=== PATIENT | male | born 1940 | race Caucasian/White ===

== ENCOUNTER 2017-10-27 14:15 | Emergency (ER) | payer MEDICARE ==
[2016-09-10 07:00] VITALS: BMI 26.4
[~2017-10-27 14:15] MED LIST: BAYER CHEWABLE81 MG PO; COZAAR50 MG; FLOMAX0.4 MG; FLOMAX0.4 MG PO; LEVAQUIN750 MG PO; LISINOPRIL10 MG NG; LISINOPRIL10 MG OR; NORCO 10/325 TA1 TA1 PO; PHENERGAN25 M1 PO; PLAVIX75 MG PO; PRAVACHOL20 MG PO; PRILOSEC20 MG OR; PRILOSEC20 MG PO; ZITHROMAX250 MG PO
[2017-10-27 15:03] LABS: BASOPHILS 0.2 % (0-2); HEMATOCRIT 46.6 % (42.0-54.0); HEMOGLOBIN 16.1 g/dL (13.5-17.5); IMMATURE GRANULOCYTES 0.2 % (0-5); LYMPHOCYTES 25.7 % (15-50); MCH 32.3 pg (26.0-34.0); MCHC 34.5 g/dL (31.0-37.0); MCV 93.6 fL (80.0-100.0); MEAN PLATELET VOLUME 10.4 fL (7.4-10.4); MONOCYTES 10.7 % (2-11); NEUTROPHILS 59.2 % (40-80); PLATELET COUNT 130 10x3/uL (130-400); RBC 4.98 10x6/uL (4.20-6.10); RDW 12.5 % (11.5-14.5)
[2017-10-27 15:20] LABS: ALBUMIN 4.1 g/dL (3.4-5.0); ALKALINE PHOSPHATASE 67 U/L (46-116); ALT (SGPT) 43 U/L (10-68); BILIRUBIN - TOTAL 0.99 mg/dL (0.2-1.3); CALC OSMOLALITY 283 mosm/kg (275-300); CALCIUM 9.4 mg/dL (8.5-10.1); CARBON DIOXIDE 29.9 mmol/L (21.0-32.0); CHLORIDE - SERUM 103 mmol/L (98-107); GLUCOSE 116 mg/dL (74-106); POTASSIUM - SERUM 4.6 mmol/L (3.5-5.1); SODIUM 141 mmol/L (136-145); UREA NITROGEN 18 mg/dL (7-18); eGFR NON AFRICAN AMERICAN 77 mL/min (90-120)
[2017-10-27 15:36] LABS: CHOL - HDL RATIO 3.6 ratio (2.3-4.9); CHOLESTEROL, TOTAL 181 mg/dL (0-200); CKMB 1.8 U/L (0.0-3.6); CREATINE KINASE 122 UL (21-232); HDL CHOLESTEROL 51 mg/dL (32-96); LDL CHOLESTEROL 101 mg/dL (0-100); TRIGLYCERIDE 148 mg/dL (30-200)
[2017-10-27 15:37] LABS: TROPONIN-I < 0.017 ng/mL (0.000-0.060)
== END 2017-10-27 19:17 | disposition home or self-care (01) ==
LOC: D.ER 14:15
PROVIDERS: Emergency Medicine
DX: R07.9 Chest pain, unspecified (principal); I45.10 Unspecified right bundle-branch block; Z95.0 Presence of cardiac pacemaker

== ENCOUNTER 2017-11-18 08:02 | Outpatient (CLI) | payer MEDICARE ==
[~2017-11-18] VITALS: Ht 185.4 cm; Wt 90.9 kg
--- NOTE | ~2017-11-18 | HEMODYNAMI ---
PATIENT:KATHI HUITRON MEDICAL RECORD: [id number] : 44 LOCATION:[facility] ADMISSION DATE: 11/18/17 Generatedon:11/18/201710:56 Patient name: KATHI HUITRON Patient #: [id number] SSN: D OB: 1940 Date of study: 11/18/2017 Page: Of Hemodynamic Procedure Report Patient Data Patient Demographics Procedure consent was obtained First Name: KATHI Gender: Male Last Name: ELANA : 1940 [facility] Initial: C Age: 77 year(s) Patient #: [id number] Race: Unknown Additional ID: [id number] Contact details [address]: [address] [place] [address] State: [place] City: [place] Zip code: [address] Admission Admission Data Admission Date: 11/18/2017 Admission Time: 8:02 Procedure Procedure Types Cath Procedure Diagnostic Procedure LHC LH w/Coronaries PCI Procedure Coronary Stent Coronary Stent Initial x2 Miscellaneous Procedures Moderate Sedation up to 15 minutes Procedure Description Procedure Date Procedure Date: 11/18/2017 Procedure Start Time: 10:35 Procedure End Time: 10:54 Procedure Staff Name Function Horacio Herrera MD Performing Physician Chandrakant Cagle RT Monitor Alice Frost RT Scrub Jan Euceda RN Nurse Procedure Data Cath Procedure Fluoroscopy Diagnostic fluoroscopy Total fluoroscopy Time: 4.7 time: 4.7 min min Diagnostic fluoroscopy Total fluoroscopy dose: 654 dose: 654 mGy mGy Contrast Material Contrast Material Type Amount (ml) Isovue 300 86 Entry Location Entry Primary Successful Side Size Upsize Upsize Entry Closure Lanza ccessful Closure Location (Fr) 1 (Fr) 2 (Fr) Remarks Device Remarks Radial Right 6 Fr Mechanical artery Short Compression Estimated blood loss: 10 ml Diagnostic catheters Device Type Used For End Catheter Placement DIAGNOSTIC Louin 110cm 5 Procedure Fr catheter ([id number]) Procedure Complications No complications Procedure Medications Medication Administration Route Dosage 0.9% NaCl I.V. 100 ml/hr Oxygen NC 2 l/min Heparin Flush Bag added to field 2 bags (1000units/500ml NS) Lidocaine 2% added to field 20 Radial Cocktail added to field 1 syringe (Verapomil 2mg/Nitro 400mcg/Heparin 1500units) Versed I.V. 1 mg Fentanyl I.V. 50 mcg Radial Cocktail I.A. 1 syringe (Verapomil 2mg/Nitro 400mcg/Heparin 1500units) Versed I.V. 0.5 mg Fentanyl I.V. 25 mcg Heparin Bolus I.V. 4000 units Hemodynamics Rest Heart Rate: 61 (bpm) Snapshots Pre Cath Intra NCS Post Cath Vital Signs Time Heart Resp SPO2 etCO2 NIBP (mmHg) Rhythm Pain Sedation Rate (ipm) (%) (mmHg) Status Level (bpm) 10:16:37 60 26 100 0 157/83(126) NSR 0 (11) 10(A) , No pain 10:21:20 60 20 97 0 130/73(91) NSR 0 (11) 10(A) , No pain 10:25:59 60 19 98 37.1 132/74(92) NSR 0 (11) 10(A) , No pain 10:30:40 61 19 98 40.1 128/66(97) NSR 0 (11) 10(A) , No pain 10:35:18 56 22 99 34.8 134/73(106) NSR 0 (11) 10(A) , No pain 10:39:52 75 21 96 29.5 113/69(100) NSR 0 (11) 9(A) , No pain 10:44:29 70 19 96 39.3 127/69(86) NSR 0 (11) 9(A) , No pain 10:49:08 71 23 96 29.5 129/68(97) NSR 0 (11) 9(A) , No pain 10:53:48 32.5 125/69(92) NSR 0 (11) 9(A) , No pain Medications Time Medication Route Dose Verified Delivered Reason Note s Effectiveness by by 10:15:59 0.9% NaCl I.V. 100 Jan Jan Per physician ml/hr Kinsey Euceda RN RN 10:16:10 Oxygen NC 2 l/min Jan Jan Per physician Kinsey Euceda RN RN 10:16:24 Heparin Flush added 2 bags Jan Jan used for Bag to Kinsey Euceda procedure (1000units/500ml field RN RN NS) 10:16:38 Lidocaine 2% added 20ml Jan Jan for local to vial Lorigan Kinsey anesthetic field RN RN 10:17:02 Radial Cocktail added 1 Jan Jan used for (Verapomil to syringe Lorigan Kinsey procedure 2mg/Nitro field RN RN 400mcg/Heparin 1500units) 10:30:56 Versed I.V. 1 mg Jan Jan for sedation Kinsey Euceda RN RN 10:31:08 Fentanyl I.V. 50 mcg Jan Jan for sedation Kinsey Euceda RN RN 10:35:40 Radial Cocktail I.A. 1 Jan Horacio for (Verapomil syringe Lorigan Taumiles MD vasodilation 2mg/Nitro RN 400mcg/Heparin 1500units) 10:35:51 Versed I.V. 0.5 mg Jan Jan for sedation Kinsey Euceda RN RN 10:35:59 Fentanyl I.V. 25 mcg Jan Jan for sedation Kinsey Euceda RN RN 10:40:12 Heparin Bolus I.V. 4000 Jan Jan for units Lorthad Euceda anticoagulation RN analyst market intelligence Log Time Note 9:50:01 Chandrakant Cagle RT(R) sent for patient. Start room use. 9:56:12 Time tracking: Regular hours 9:56:16 Plan of Care:Hemodynamics will remain stable., Cardiac rhythm will remain stable., Comfort level will be maintained., Respiratory function will remain adequate., Patient/ family verbilizes understanding of procedure., Procedure tolerated without complication., Recovers from procedure without complications.. 10:07:22 Patient received from Pre/Post Procedure Room to CCL 1 Alert and oriented. Tansferred to table in Supine position. 10:07:24 Warm blankets applied, and armaan hugger turned on for patient comfort. 10:07:24 Correct patient and procedure confirmed by team. 10:07:26 Signed procedure consent form obtained from patient. 10:07:26 ECG and BP/O2 sat monitors applied to patient. 10:07:27 Full Disclosure recording started 10:15:40 Vital chart was started 10:15:42 Baseline sample Acquired. 10:15:48 Rhythm: sinus rhythm 10:15:57 H&P Date Dictated: 10/31/2017 Within 30 days and on chart., H&P Addendum completed by physician on day of procedure. (MUST COMPLETE FOR ALL OUTPATIENTS). 10:15:58 Pre-procedure instructions explained to patient. 10:15:59 0.9% NaCl 100 ml/hr I.V. was administered by Jan Euceda RN; Per physician; 10:15:59 Pre-op teaching completed and patient verbalized understanding. 10:16:07 Family in patients room. 10:16:09 Patient NPO since Midnight. 10:16:10 Oxygen 2 l/min NC was administered by Jan Euceda RN; Per physician; 10:16:10 Is the patient allergic to Iodine/contrast media? No. 10:16:14 Is patient on blood thinner?Yes 10:16:18 ACC The patient was administered the following blood thiners within the last 24 hours: ACCPlavix 10:16:20 Patient diabetic? No. 10:16:22 Previous problem with sedation/anesthesia? No ? 10:16:23 Snore? Yes 10:16:24 Heparin Flush Bag (1000units/500ml NS) 2 bags added to field was administered by Jan Euceda RN; used for procedure; 10:16:25 Sleep apnea? No 10:16:26 Deviated septum? No 10:16:27 Opens mouth fully? Yes 10:16:27 Sticks out tongue? Yes 10:16:33 Airway obstruction? Yes Asthma, COPD 10:16:38 Lidocaine 2% 20ml vial added to field was administered by Jan Euceda RN; for local anesthetic; 10:16:48 Dentures? No ? 10:16:50 Pre procedure: right dorsailis pedis pulse 1+ Palpable, but thready & weak; easily obliterated 10:16:53 Modified Tristan's test Ulnar < 7 seconds 10:16:55 Patient pain scale 0/10 ?. 10:17:02 Radial Cocktail (Verapomil 2mg/Nitro 400mcg/Heparin 1500units) 1 syringe added to field was administered by Jan Eucdea RN; used for procedure; 10:17:07 IV patent on arrival in right antecubital with 0.9% NaCl at [facility]. 10:17:17 Lab results completed and on chart. 10:17:19 Right Radial & Right Groin area was prepped with chlora-prep and draped in sterile fashion 10:17:20 Alarms reviewed by R. N. 10:17:21 Sharps counted by scrub and verified by R.N. 10:17:25 Use device set Radial Dx or PCI 10:17:27 Tegaderm 4 x 4 (1626W) opened to sterile field. 10:17:28 ACIST Manifold (54403) opened to sterile field. 10:17:28 ACIST Hand Control (48001) opened to sterile field. 10:17:31 ACIST Syringe (60323) opened to sterile field. 10:17:31 Medline Cath Pack ([id number]) opened to sterile field. 10:17:31 Bag Decanter (2002S) opened to sterile field. 10:17:32 SHEATH 6FR Slender ([id number]) opened to sterile field. 10:17:32 DIAGNOSTIC WIRE .035 260cm J wire (323369) opened to sterile field. 10:17:33 MBrace Wrist Support ([id number]) opened to sterile field. 10:29:11 Zero performed for pressure channel P1 10:29:14 Zero performed for pressure channel P1 10:30:27 --------ALL STOP TIME OUT------ 10:30:27 Final Timeout: patient, procedure, and site verified with staff and physician. All members of the team are in agreement. 10:30:29 Right Radial & Right Groin site verified by team. 10:30:32 Physical assessment completed. ASA score P 2 - A patient with mild systemic disease as per Horacio Herrera MD. 10:30:35 Sedation plan: IV Moderate Sedation Medication:Versed, Fentanyl 10:30:56 Versed 1 mg I.V. was administered by Jan Euceda RN; for sedation; 10:31:08 Fentanyl 50 mcg I.V. was administered by Jan Euceda RN; for sedation; 10:35:03 Procedure started. 10:35:08 Local anesthetic to right radial artery with Lidocaine 2% by Horacio Herrera MD.INITIAL ACCESS ONLY 10:35:29 A 6 Fr Short sheath was inserted into the Right Radial artery 10:35:40 Radial Cocktail (Verapomil 2mg/Nitro 400mcg/Heparin 1500units) 1 syringe I.A. was administered by Horacio Herrera MD; for vasodilation; 10:35:40 A DIAGNOSTIC Louin 110cm 5 Fr catheter (001002) was advanced over the wire and used for Procedure. 10:35:51 Versed 0.5 mg I.V. was administered by Jan Euceda RN; for sedation; 10:35:59 Fentanyl 25 mcg I.V. was administered by Jan Euceda RN; for sedation; 10:36:34 LV angiography performed. 10:36:40 LV gram done using VILLALOBOS 10:37:10 EF : 60 % 10:37:22 Injector settings: Ml/sec: 7, Volume: 15, 10:37:34 LCA angiography performed. 10:37:50 Use device set [facility] PCI 10:38:07 RCA angiography performed. 10:38:09 CHOICE PT Extra Support J 300cm guide wire ([id number]) opened to sterile field. 10:38:10 GUIDE 6FR XBLAD 3.5 catheter ([id number]) opened to sterile field. 10:38:13 INFLATOR Merit BasixCompak (CW8544) opened to sterile field. 10:38:17 Catheter exchanged over wire. 10:40:12 Heparin Bolus 4000 units I.V. was administered by Jan Euceda RN; for anticoagulation; 10:41:57 6 Fr XBLAD 3.5 guide catheter was inserted over the wire 10:42:15 Choice PT XS wire advanced. 10:42:17 Wire advanced across lesion. 10:42:28 Inflation Number: 1 A CLARICE OTW 3.5 x 15 stent ([id number]) was prepped and advanced across the Mid CX. The stent was deployed at 13 ANALY for 0:10 (min:sec). 10:43:29 Stent catheter was removed intact over wire. 10:45:12 Inflation Number: 2 A CLARICE OTW 3.0 x 12 stent ([id number]) was prepped and advanced across the Mid CX. The stent was deployed at 19 ANALY for 0:10 (min:sec). 10:45:38 Stent catheter was removed intact over wire. 10:47:01 Wire redirected to LAD. 10:47:26 Inflation Number: 1 A CLARICE OTW 3.0 x 12 stent ([id number]) was prepped and advanced across the Mid LAD. The stent was deployed at 19 ANALY for 0:10 (min:sec). 10:48:03 TR BAND Standard ([id number]) opened to sterile field. 10:48:08 Stent catheter was removed intact over wire. 10:48:09 Wire removed. 10:48:09 Guide catheter removed. 10:48:23 Sheath removed intact; hemostasis achieved with Mechanical Compression to the Right Radial artery. 10:48:26 Procedure ended.(Physican Out) 10:49:54 TR band inflated with 10cc of air. 10:49:58 Fluoroscopy time 04.70 minutes. 10:50:02 Fluoroscopy dose: 654 mGy 10:50:02 Flurop Dose total: 654 10:50:08 Contrast amount:Isovue 300 86ml. 10:50:10 Sharps counted by scrub and verified by R.N. 10:53:51 Insertion/operative site no bleeding no hematoma. 10:53:57 Post Procedure Pulses reassessed and unchanged 10:54:00 Post-procedure physical assessment completed. ASA score P 2 - A patient with mild systemic disease as per Horacio Herrera MD. 10:54:02 Post procedure rhythm: unchanged. 10:54:04 Estimated blood loss: 10 ml 10:54:06 Post procedure instruction explained to patient.Patient verbalizes understanding. 10:54:07 Patient needs reinforcement of post procedure teaching. 10:54:19 Procedure type changed to Cath procedure, Diagnostic procedure, LHC, LHC w/Coronaries, PCI procedure, Coronary Stent, Coronary Stent Initial x2, Miscellaneous Procedures, Moderate Sedation up to 15 minutes 10:54:20 Procedure and supply charges have been captured, reviewed, submitted and are correct. 10:54:23 Procedure Complication : No complications 10:54:45 Vital chart was stopped 10:54:46 See physician's report for complete and final results. 10:54:47 Report given to Pre/Post Procedure Room. 10:54:51 Patient transfered to Pre/Post Procedure Room with Stretcher. 10:54:53 Procedure ended. 10:54:53 Full Disclosure recording stopped 10:55:05 End room use (Document Last) Intervention Summary Intervention Notes Time ActionType Lesion and Equipment Action# Pressure Duration Attributes Used 10:42:28 Place stent Mid CX CLARICE OTW 3.5 1 13 00:10 x 15 stent ([id number]) 10:45:12 Place stent Mid CX CLARICE OTW 3.0 2 19 00:10 x 12 stent ([id number]) 10:47:26 Place stent Mid LAD CLARICE OTW 3.0 1 19 00:10 x 12 stent ([id number]) Device Usage Item Name Manufacture Quantity Catalog Number [facility] Part Current [facility] Lot# / Charge Number Stock Stock Serial# Code Tegaderm 4 x 3M 1 1626W 068869 779599 957744 5 4 (1626W) ACIST Acist 1 82121 330339 936838 874045 5 Manifold Medical (16791) Systems Inc ACIST Hand Acist 1 77606 054778 740135 315022 5 Control Medical (06379) Systems Inc ACIST Syringe Acist 1 98629 855495 045584 808902 20 (64084) Medical Systems Inc Medline Cath Cardinal 1 [id number] 683586 23407 210752 5 Saharey (JSMH54006) Bag Decanter Microtek 1 2001S 984805 53390 563794 5 (2001S) Medical Inc. SHEATH 6FR Terumo 1 [id number] 670479 859605 496374 40 Slender ([id number]) DIAGNOSTIC St Tom 1 140269 849963 050430 595750 30 WIRE .035 260cm J wire (078299) MBrace Wrist Advanced 1 140-0250-00 186957 85037 818973 5 Support Vascular (297713924) Dynamics DIAGNOSTIC Terumo 1 40-5013 619579 742607 840500 5 Louin 110cm 5 Fr catheter (246442) GUIDE 6FR Cardinal 1 [id number] 235724 634506 639291 10 XBLAD 3.5 Health catheter (08346764) INFLATOR Merit 1 OI6967 701351 231719 857594 15 [employer] Medical BasixCompak (SG0162) CLARICE OTW 3.5 Medtronic 1 [id number] 918637 4328424 496523 5 [id number] x 15 stent ([id number]) CHOICE PT Circle 1 [id number] 501083 573110 176400 5 Extra Support Scientific J 300cm guide wire ([id number]) CLARICE OTW 3.0 Medtronic 2 [id number] 273165 070020 487053 5 [id number] x 12 stent [id number] ([id number]) TR BAND Terumo 1 [id number] 973190 777605 240956 40 Standard ([id number]) Signature Audit Bath Stage Time Signature Unsigned Intra-Procedure 11/18/2017 Chandrakant Cagle 10:56:23 AM RT(R) Signatures Monitor : Chandrakant Cagle RT Signature : Date : Time : [address] [address]
--- NOTE | ~2017-11-18 | OP ---
PATIENT NAME: KATHI HUITRON MEDICAL RECORD: [id number] :44 LOCATION:D.CAT ADMISSION DATE: SURGEON: LIVIA SMITH MD DATE OF OPERATION: 11/18/2017 PROCEDURES: 1. PTCA stent to LAD. 2. PTCA stent to left circumflex. 3. Left heart catheterization. 4. Selective coronary angiography. 5. Left ventriculogram. INDICATION: Angina and coronary artery disease. PROCEDURE IN DETAIL: After informed consent was obtained and after a detailed explanation of the risks, benefits as well as alternative therapies, the patient elected to proceed with angiogram and angioplasty. The right radial area was prepped and draped in normal sterile fashion. The right radial artery was cannulated via modified Seldinger technique with placement of 6-[place] sheath. All catheters exchanged through this sheath. FINDINGS: Left ventriculogram was performed in standard 30-degree VILLALOBOS view, reveals good cardiac wall motion throughout all segments. Overall ejection fraction estimated 60%. SELECTIVE CORONARY ANGIOGRAPHY: 1. Left main showed no significant angiographic disease. 2. Left anterior descending has a previously placed stent proximally. Proximal to this, there is 70% to 80% stenosis. 3. The left circumflex has 80% stenosis proximally. 4. Right coronary artery has moderate irregularities, but no flow-limiting stenosis. PTCA STENT OF THE LAD AND CIRCUMFLEX: The LAD was addressed with a 3.0 x 12 mm Piyush, the left circumflex with a 3.0 x 12 and 3.5 x 15 Piyush. Result was 0% residual stenosis. OVERALL IMPRESSION: Successful percutaneous transluminal coronary angioplasty stent of the left anterior descending and circumflex, both going from 80% initial stenosis to 0% residual. TRANSINT:[id number] Voice Confirmation ID: [id number] DOCUMENT ID: [id number] LIVIA SMITH MD at 1759 CC: [id number] DICTATION DATE: 11/18/17 1051 PEACE OFFICER: 11/18/17 1307 DEP CLI 11/18/17 [place] [id number] [place] [address]
[2017-11-18] MEDS ORDERED: SINGULAIR5 MG PO (08:33)
[2017-11-18] MEDS ORDERED: PLAVIX75 MG PO ×2 (08:35→11:10)
[2017-11-18 08:46] VITALS: BP 129/69; Ht 185.4 cm; Wt 90.9 kg
[2017-11-18 09:03] LABS: BASOPHILS 0.3 % (0-2); EOSINOPHILS 3.9 % (0-7); HEMATOCRIT 46.8 % (42.0-54.0); HEMOGLOBIN 15.7 g/dL (13.5-17.5); IMMATURE GRANULOCYTES 0.3 % (0-5); LYMPHOCYTES 22.2 % (15-50); MCH 31.8 pg (26.0-34.0); MCHC 33.5 g/dL (31.0-37.0); MCV 94.9 fL (80.0-100.0); MEAN PLATELET VOLUME 10.4 fL (7.4-10.4); MONOCYTES 14.6 % (2-11); NEUTROPHILS 58.7 % (40-80); RBC 4.93 10x6/uL (4.20-6.10); RDW 12.7 % (11.5-14.5); WBC 3.8 10x3/uL (4.8-10.8)
[2017-11-18 09:04] LABS: PLATELET COUNT 98 10x3/uL (130-400)
[2017-11-18 09:11] LABS: CALC OSMOLALITY 279 mosm/kg (275-300); CALCIUM 8.8 mg/dL (8.5-10.1); CARBON DIOXIDE 28.3 mmol/L (21.0-32.0); CHLORIDE - SERUM 103 mmol/L (98-107); GLUCOSE 134 mg/dL (74-106); POTASSIUM - SERUM 4.4 mmol/L (3.5-5.1); SODIUM 139 mmol/L (136-145); UREA NITROGEN 12 mg/dL (7-18); eGFR NON AFRICAN AMERICAN 77 mL/min (90-120)
[2017-11-18 09:30] LABS: PLATELET ESTIMATE DECREASED
== END 2017-11-18 15:00 | disposition home or self-care (01) ==
LOC: D.CATH 08:02
PROVIDERS: Internal Medicine Interventional Cardiology
DX: I25.119 Atherosclerotic heart disease of native coronary artery with unspecified angina pectoris (principal); I10 Essential (primary) hypertension; I49.5 Sick sinus syndrome; Z01.812 Encounter for preprocedural laboratory examination
CPT/HCPCS: 93458; C9600 ×2

== ENCOUNTER 2018-10-03 06:24 | Day surgery (SDC) | payer MEDICARE ==
[~2018-10-03] VITALS: Ht 185.4 cm; Wt 90.5 kg
--- NOTE | ~2018-10-03 | HP ---
PATIENT: KATHI HUITRON MEDICAL RECORD: [id number] ACCOUNT: [id number] LOCATION:DEMARIO : 44 ADMISSION DATE: 10/03/18 PCP: NITZA KNOX DO HISTORY AND PHYSICAL EXAMINATION CHIEF COMPLAINT: Escalera's esophagus. HISTORY OF PRESENT ILLNESS: The patient is here for Escalera's surveillance. He is here for an upper endoscopy with biopsies. The patient does have gastroesophageal reflux which is controlled with pantoprazole. He has had no abdominal pain. PAST MEDICAL AND SURGICAL HISTORY: History of 4 coronary stents, gastroesophageal reflux, BPH, hypercholesterolemia. ALLERGIES: ÁNGEL INHIBITORS. HOME MEDICINES: Please see the nursing list. SOCIAL HISTORY: Nonsmoker. PHYSICAL EXAMINATION: GENERAL: The patient does not appear acutely ill. He does not appear chronically ill. VITAL SIGNS: Reviewed. EARS: External ears appear normal. EYES: Extraocular movements are intact. NECK: Trachea is midline. CHEST: No intercostal retractions. PULMONARY: Nonlabored, no stridor. ABDOMEN: No peritonitis with movement. IMPRESSION: Escalera's in need of surveillance upper endoscopy with biopsies. PLAN: Upper endoscopy with biopsies. TRANSINT:[id number] Voice Confirmation ID: [id number] DOCUMENT ID: [id number] NITZA FOUNTAIN MD at 1525 CC: NITZA KNOX [id number] DICTATION DATE: 10/03/18925 SHOP AND ALTERATION TAILOR: 10/03/18 0954 [facility] 10/03/[address] [address]
--- NOTE | ~2018-10-03 | OP ---
PATIENT NAME: KATHI HUITRON MEDICAL RECORD: [id number] :44 LOCATION:D.OPS ADMISSION DATE: SURGEON: STU FOUNTAIN MD DATE OF OPERATION: 10/03/2018 PRINCIPAL DIAGNOSIS: History of Escalera's in need of surveillance upper endoscopy. POSTOPERATIVE DIAGNOSES: 1. History of Escalera's in need of surveillance upper endoscopy. 2. Moderately sized hiatal hernia. 3. Duodenal diverticulum. 4. Multiple gastric polyps, sessile, ranging in size from 4 mm to 1.1 cm. PROCEDURES: 1. Esophagogastroduodenoscopy with antral and distal esophageal biopsies. 2. Gastric hot biopsy forceps polypectomy times 1. 3. Ablation of 5 gastric polyps with the electrocautery. SURGEON: Stu Fountain MD CAGE OPERATOR: None. BLOOD LOSS: Minimal. ANESTHESIA: Topical with IV sedation. COMPLICATIONS: None. The risks, possible complications and alternatives to the procedure were explained to the patient. He elects to proceed. OPERATIVE COURSE: The patient was conveyed to the endoscopy suite electively on 10/03/2018. IV sedation was induced by the anesthesia staff. A bite block was inserted. A gastroscope was inserted into the mouth. It was advanced easily into the hypopharynx. The esophagus was easily intubated as were the stomach and duodenum. Upon withdrawal, retroflexed and angulus views were obtained. Antral biopsies were obtained. Four quadrant biopsies were obtained at the EG junction. One gastric hot biopsy forceps polypectomy was performed at the site of the largest gastric polyp. Five other gastric polyps were ablated with electrocautery. The endoscope was then withdrawn under direct vision. I will see the patient in my office in 2-3 weeks to discuss the results of his biopsies. If there has been no dysplasia within the Escalera's, I will plan for his next surveillance upper endoscopy to take place in 2-3 years. TRANSINT:[id number] Voice Confirmation ID: [id number] DOCUMENT ID: [id number] OPERATIVE REPORT [id number] KATHI HUITRON ROBERT MD at 1525 CC: STU KNOX [id number] DICTATION DATE: 10/03/18 0957 MONONITROTOLUENE OPERATOR: 10/03/18 1146 [facility] 10/03/18 [facility] [address] [place] [address]
[~2018-10-03 06:24] MED LIST changes: +SINGULAIR5 MG PO
[2018-10-03 06:45] LABS: BASOPHILS 0.2 % (0-2); EOSINOPHILS 5.1 % (0-7); HEMATOCRIT 46.3 % (42.0-54.0); IMMATURE GRANULOCYTES 0.2 % (0-5); MCH 32.5 pg (26.0-34.0); MCHC 34.6 g/dL (31.0-37.0); MCV 93.9 fL (80.0-100.0); MONOCYTES 7.1 % (2-11); NEUTROPHILS 63.4 % (40-80); PLATELET COUNT 104 10x3/uL (130-400); RBC 4.93 10x6/uL (4.20-6.10); RDW 12.3 % (11.5-14.5); WBC 5.3 10x3/uL (4.8-10.8)
[2018-10-03 06:56] LABS: CALC OSMOLALITY 288 mosm/kg (275-300); CALCIUM 8.7 mg/dL (8.5-10.1); CARBON DIOXIDE 29.7 mmol/L (21.0-32.0); CHLORIDE - SERUM 104 mmol/L (98-107); GLUCOSE 166 mg/dL (74-106); POTASSIUM - SERUM 4.3 mmol/L (3.5-5.1); SODIUM 142 mmol/L (136-145); UREA NITROGEN 17 mg/dL (7-18); eGFR NON AFRICAN AMERICAN 77 mL/min (90-120)
[2018-10-03 06:58] LABS: APTT 25.5 SECONDS (22.8-39.4); INR 0.98 (0.85-1.17); PROTIME 12.5 SECONDS (11.6-15.0)
[2018-10-03] MEDS ORDERED: COZAAR100 MG PO (07:25)
[2018-10-03] MEDS ORDERED: SYMBICORT 16010.2 GM INH (07:26)
[2018-10-03] MEDS ORDERED: PROAIR (07:30)
[2018-10-03 07:52] VITALS: BP 129/73; Ht 185.4 cm; Wt 90.5 kg
== END 2018-10-03 10:35 | disposition home or self-care (01) ==
LOC: D.OPS 06:24
PROVIDERS: Anesthesiology
DX: K44.9 Diaphragmatic hernia without obstruction or gangrene (principal); K57.10 Diverticulosis of small intestine without perforation or abscess without bleeding; K31.7 Polyp of stomach and duodenum; K21.9 Gastro-esophageal reflux disease without esophagitis; Z95.5 Presence of coronary angioplasty implant and graft; N40.0 Benign prostatic hyperplasia without lower urinary tract symptoms; E78.00 Pure hypercholesterolemia, unspecified; Z88.8 Allergy status to other drugs, medicaments and biological substances; Z01.812 Encounter for preprocedural laboratory examination